=== PATIENT | male | born 1995 | race Caucasian/White ===

== ENCOUNTER 2021-09-12 17:21 | Emergency (ER) | payer MEDICAID ==
[2021-09-12] MEDS ORDERED: Morphine 4 MG/ML VIAL IVPUSH ONE ×2 (19:17→20:42)
[2021-09-12] MEDS ORDERED: Ondansetron 4 MG/2 ML SDV IVPUSH ONE (19:17)
[2021-09-12] MEDS ORDERED: Sodium Chloride 0.9% 1,000 ML IV ONE ×2 (19:17→20:50)
--- NOTE | 2021-09-12 19:20 | EDM.PDOC ---
ED HPI GENERAL MEDICAL PROBLEM - General Chief Complaint: Abdominal Pain Stated Complaint: STOMACH ISSUES Time Seen by Provider: 09/12/21 19:12 Source of Information: Reports: Patient History Limitations: Reports: No Limitations - History of Present Illness INITIAL COMMENTS - FREE TEXT/NARRATIVE: 26-year-old male past medical history intussusception with subsequent small bowel obstruction requiring operative repair roughly 1 year ago presents for concerns for bowel obstruction. Patient states that he moved to this area about 2 weeks ago and has not yet established care with physicians. He states that over the last 5 or 6 days he had some diarrhea with some minimal abdominal pain but over the last 2 days has had lack of bowel movements or passing gas associated with nausea and multiple episodes of nonbloody emesis. His abdominal pain is diffuse without localization. He states it feels similar to when he had a small bowel obstruction in the past. Lower Abdomen Pain Score (Numeric/FACES): 7 - Related Data Allergies Allergy/AdvReac Type Severity Reaction Status Date / Time No Known Allergies Allergy Verified 09/12/21 18:26 Past Medical History Gastrointestinal History: Reports: Bowel Obstruction Other Gastrointestinal History: surgery to repair bowel obstruction - Infectious Disease History Infectious Disease History: Reports: None Social & Family History - Family History Family Medical History: No Pertinent Family History - Tobacco Use Tobacco Use Status *Q: Current Every Day Tobacco User Years of Tobacco use: 9 Packs/Tins Daily: 1 - Caffeine Use Caffeine Use: Reports: Energy Drinks ED ROS GENERAL - Review of Systems Review Of Systems: Comprehensive ROS is negative, except as noted in HPI. ED EXAM, GENERAL - Physical Exam Exam: See Below Exam Limited By: No Limitations General Appearance: Alert, WD/WN, No Apparent Distress Ears: Hearing Grossly Normal Throat/Mouth: Normal Voice, No Airway Compromise Head: Atraumatic, Normocephalic Respiratory/Chest: No Respiratory Distress, Lungs Clear, Normal Breath Sounds, No Accessory Muscle Use Cardiovascular: Normal Peripheral Pulses GI/Abdominal: Soft, Other (diffuse TTP with voluntary guarding, no gross distention) Extremities: Normal Inspection Neurological: Alert, Normal Cognition, Normal Gait Psychiatric: Normal Affect, Normal Mood Skin Exam: Warm, Dry, Intact, Normal Color Course - Vital Signs Last Recorded V/S: Last Vital Signs Temp 98.8 F 09/12/21 19:12 Pulse 69 09/12/21 20:15 Resp 16 09/12/21 20:15 BP 133/89 09/12/21 20:15 Pulse Ox 96 09/12/21 20:15 - Orders/Labs/Meds Orders: Active Orders 24 hr Category Date Time Status NG Tube Placement [CR] Stat Exams 09/12/21 20:49 Ordered CORONAVIRUS COVID-19 SANDRA [MOLEC] Stat Lab 09/12/21 20:30 Received LACTIC ACID [CHEM] Stat Lab 09/12/21 21:09 Received Piperacillin/Tazobactam [Piperacil-Tazobact] 4.5 gm Med 09/12/21 20:57 Active Sodium Chloride 0.9% [Normal Saline AdvBag] 100 ml IV ONETIME Sodium Chloride 0.9% [Normal Saline] 1,000 ml Med 09/12/21 20:50 Active IV .Bolus Saline Lock Insert [OM.PC] Stat Oth 09/12/21 19:17 Ordered Medication Orders Sodium Chloride (Normal Saline) 1,000 mls @ 125 mls/hr IV .Bolus ONE Stop: 09/13/21 04:49 Last Admin: 09/12/21 20:54 Dose: 125 mls/hr Documented by: CONSTANTINE Piperacillin Sod/Tazobactam (Sod 4.5 gm/ Sodium Chloride) 100 mls @ 100 mls/hr IV ONETIME ONE Stop: 09/12/21 21:56 Last Admin: 09/12/21 21:05 Dose: 100 mls/hr Documented by: FELICIA Labs: Laboratory Tests 09/12/21 09/12/21 09/12/21 Range/Units 19:33 19:33 19:33 WBC 12.21 H (4.0-11.0) K/uL RBC 4.88 (4.50-5.90) M/uL Hgb 15.6 (13.0-17.0) g/dL Hct 43.7 (38.0-50.0) % MCV 89.5 (80.0-98.0) fL MCH 32.0 (27.0-32.0) pg MCHC 35.7 (31.0-37.0) g/dL RDW Std Deviation 40.2 (28.0-62.0) fl RDW Coeff of Francine 13 (11.0-15.0) % Plt Count 255 (150-400) K/uL MPV 9.50 (7.40-12.00) fL Neut % (Auto) 76.6 (48.0-80.0) % Lymph % (Auto) 16.8 (16.0-40.0) % Ulster % (Auto) 6.3 (0.0-15.0) % Eos % (Auto) 0.2 (0.0-7.0) % Baso % (Auto) 0.1 (0.0-1.5) % Neut # (Auto) 9.4 H (1.4-5.7) K/uL Lymph # (Auto) 2.1 (0.6-2.4) K/uL Ulster # (Auto) 0.8 (0.0-0.8) K/uL Eos # (Auto) 0.0 (0.0-0.7) K/uL Baso # (Auto) 0.0 (0.0-0.1) K/uL Nucleated RBC % 0.0 /100WBC Nucleated RBCs # 0 K/uL Sodium 141 (136-148) mmol/L Potassium 3.8 (3.5-5.1) mmol/L Chloride 104 (98-107) mmol/L Carbon Dioxide 27.3 (21.0-32.0) mmol/L BUN 10 (7.0-18.0) mg/dL Creatinine 0.8 (0.8-1.3) mg/dL Est Cr Clr Drug Dosing 140.05 mL/min Estimated GFR (MDRD) > 60.0 ml/min Glucose 112 H (74-106) mg/dL Lactic Acid 1.1 (0.4-2.0) mmol/L Calcium 9.5 (8.5-10.1) mg/dL Magnesium 2.2 (1.8-2.4) mg/dL Total Bilirubin 0.6 (0.2-1.0) mg/dL AST 10 L (15-37) IU/L ALT 13 L (14-63) IU/L Alkaline Phosphatase 121 H (46-116) U/L Total Protein 7.8 (6.4-8.2) g/dL Albumin 4.2 (3.4-5.0) g/dL Globulin 3.6 (2.6-4.0) g/dL Albumin/Globulin Ratio 1.2 (0.9-1.6) Lipase 77 (73-393) U/L Meds: Medications Generic Name Dose Route Start Last Admin Trade Name Freq PRN Reason Stop Dose Admin Sodium Chloride 1,000 mls @ 125 mls/hr 09/12/21 20:50 09/12/21 20:54 Normal Saline IV 09/13/21 04:49 125 mls/hr .Bolus ONE Administration Piperacillin Sod/Tazobactam 100 mls @ 100 mls/hr 09/12/21 20:57 09/12/21 21:05 Sod 4.5 gm/ Sodium Chloride IV 09/12/21 21:56 100 mls/hr ONETIME ONE Administration Discontinued Medications Generic Name Dose Route Start Last Admin Trade Name Freq PRN Reason Stop Dose Admin Sodium Chloride 1,000 mls @ 999 mls/hr 09/12/21 19:17 09/12/21 19:28 Normal Saline IV 09/12/21 20:17 999 mls/hr .Bolus ONE Administration Iopamidol 100 ml 09/12/21 20:13 09/12/21 20:13 Iopamidol 755 Mg/Ml 500 Ml Multipack Bottle IVPUSH 09/12/21 20:14 100 ml ONETIME ONE Administration Morphine Sulfate 4 mg 09/12/21 19:17 09/12/21 19:30 Morphine 4 Mg/Ml Vial IVPUSH 09/12/21 19:18 4 mg ONETIME ONE Administration Morphine Sulfate 4 mg 09/12/21 20:42 09/12/21 20:51 Morphine 4 Mg/Ml Vial IVPUSH 09/12/21 20:43 4 mg ONETIME ONE Administration Ondansetron HCl 4 mg 09/12/21 19:17 09/12/21 19:29 Ondansetron 4 Mg/2 Ml Sdv IVPUSH 09/12/21 19:18 4 mg ONETIME ONE Administration - Re-Assessments/Exams Free Text/Narrative Re-Assessment/Exam: 09/12/21 19:20 Will get labs. Will get CT imaging. Will give morphine and Zofran for symptomatic relief. Will give IV fluid bolus. 09/12/21 20:50 CT imaging shows a developing SBO. I spoke with general surgery Dr. Johnson who recommends NG tube placement and admitting the patient under hospitalist service for IV fluids and for him to assess in the morning. We will reach out to hospitalist for admit 09/12/21 21:36 Hospitalist agrees to admit patient under her service. Patient would like to leave AGAINST MEDICAL ADVICE. Risks of leaving AGAINST MEDICAL ADVICE including , permanent disability, colostomy, emergent surgery were discussed at length. Departure - Departure Time of Disposition: 21:36 Disposition: Home, Self-Care 01 Condition: Serious Clinical Impression: SBO (small bowel obstruction) - Discharge Information Instructions: Colostomy Home Guide, Adult Referrals: PCP,None [Primary Care Provider] - Forms: ED Department Discharge Additional Instructions: You have chosen to leave AGAINST MEDICAL ADVICE. This increases your risks of serious complications including needing a colostomy in the future or even . The following information is given to patients seen in the emergency department who are being discharged to home. This information is to outline your options for follow-up care. We provide all patients seen in our emergency department with a follow-up referral. The need for follow-up, as well as the timing and circumstances, are variable depending upon the specifics of your emergency department visit. If you don't have a primary care physician on staff, we will provide you with a referral. We always advise you to contact your personal physician following an emergency department visit to inform them of the circumstance of the visit and for follow-up with them and/or the need for any referrals to a consulting specialist. The emergency department will also refer you to a specialist when appropriate. This referral assures that you have the opportunity for follow-up care with a specialist. All of these measure are taken in an effort to provide you with optimal care, which includes your follow-up. Under all circumstances we always encourage you to contact your private physician who remains a resource for coordinating your care. When calling for follow-up care, please make the office aware that this follow-up is from your recent emergency room visit. If for any reason you are refused follow-up, please contact the [facility] Emergency Department at and asked to speak to the emergency department charge nurse. Please follow up with your primary care physician. If you do not have a primary care physician, see below: [facility] [address] [place] [phone] [facility] [address] [place] [address] [facility] [address] [place] [address] Sepsis Event Note (ED) - Evaluation Sepsis Screening Result: No Definite Risk - Focused Exam Vital Signs: Vital Signs Temp Pulse Resp BP Pulse Ox 09/12/21 20:15 69 16 133/89 96 09/12/21 19:12 98.8 F 75 16 137/73 96 09/12/21 18:26 95 16 130/88 98 - My Orders Last 24 Hours: My Active Orders 09/12/21 19:17 Saline Lock Insert [OM.PC] Stat 09/12/21 20:30 CORONAVIRUS COVID-19 SANDRA [MOLEC] Stat 09/12/21 20:49 NG Tube Placement [CR] Stat 09/12/21 20:50 Sodium Chloride 0.9% [Normal Saline] 1,000 ml IV .Bolus 09/12/21 20:57 Piperacillin/Tazobactam [Piperacil-Tazobact] 4.5 gm Sodium Chloride 0.9% [Normal Saline AdvBag] 100 ml IV ONETIME 09/12/21 21:09 LACTIC ACID [CHEM] Stat - Assessment/Plan Last 24 Hours: My Active Orders 09/12/21 19:17 Saline Lock Insert [OM.PC] Stat 09/12/21 20:30 CORONAVIRUS COVID-19 SANDRA [MOLEC] Stat 09/12/21 20:49 NG Tube Placement [CR] Stat 09/12/21 20:50 Sodium Chloride 0.9% [Normal Saline] 1,000 ml IV .Bolus 09/12/21 20:57 Piperacillin/Tazobactam [Piperacil-Tazobact] 4.5 gm Sodium Chloride 0.9% [Normal Saline AdvBag] 100 ml IV ONETIME 09/12/21 21:09 LACTIC ACID [CHEM] Stat
[2021-09-12 20:01] LABS: BLOOD UREA NITROGEN,BUN 10 mg/dL (7.0-18.0); CARBON DIOXIDE,CO2 27.3 mmol/L (21.0-32.0); CHLORIDE,CL 104 mmol/L (98-107); GLUCOSE RANDOM 112 mg/dL (74-106); LIPASE 77 U/L (73-393); POTASSIUM,K 3.8 mmol/L (3.5-5.1); SODIUM,NA 141 mmol/L (136-148)
[2021-09-12] MEDS ORDERED: Iopamidol 755 MG/ML 500 ML Multipack Bottle IVPUSH ONE (20:13)
--- NOTE | 2021-09-12 20:36 | CT ---
Indication: History of intussusception of small bowel obstruction. Feels obstructed. Technique: Multiple contiguous axial images were obtained from the lung bases through the symphysis pubis after the intravenous administration of 100 milliliters Isovue 370. Please note that all CT scans at this facility use dose modulation, iterative reconstruction, and/or weight-based dosing when appropriate to reduce radiation dose to as low as reasonably achievable. Comparison: None Findings: The lung bases are clear. The heart is normal in size. No pericardial effusions identified. The liver, gallbladder, pancreas, spleen, adrenals, and kidneys are normal. No intrahepatic biliary ductal dilatation is identified. No hydronephrosis is identified. In the pelvis, the urinary bladder is normal. At the level of the postoperative change of the small bowel loop in the anterior aspect of the mid abdomen, a fluid-filled loop of bowel is identified. This measures up to 2.2 centimeters in size, which was within normal limits. However, the remainder of the bowel loops are decompressed. An early or developing small bowel obstruction cannot be excluded. No free fluid or free air is identified within the abdomen or pelvis. The aorta is normal in caliber. Impression: Cannot exclude a developing small-bowel obstruction at the site of the previous surgery in the mid small bowel in the anterior aspect of the abdomen. If clinically indicated, the patient could be given nonionic contrast and serial KUB images could be obtained. These findings were discussed with José Vera at the time of this dictation. Please note that all CT scans at this facility use dose modulation, iterative reconstruction, and/or weight-based dosing when appropriate to reduce radiation dose to as low as reasonably achievable. Dictated by Monserrat Torres MD @ 09/12/2021 8:35:11 PM (Electronically Signed)
[2021-09-12] MEDS ORDERED: Piperacillin/Tazobactam 4.5 GM in Sodium Chloride 0.9% 100 ML IV ONE (20:57)
== END 2021-09-12 21:42 | disposition left against medical advice (07) ==
LOC: MW.ED 17:21
DX: K56.609 Unspecified intestinal obstruction, unspecified as to partial versus complete obstruction (principal); Z72.0 Tobacco use
CPT/HCPCS: 36415; 74177; 80053; 83605; 83690; 83735; 85025; 87635; 96365; 96375; 96376; 99284; J2270; J2405; J2543; J7030; Q9967; U0002